=== PATIENT | female | born 1985 | race Caucasian/White ===

== ENCOUNTER → 2019-12-26 | Outpatient (CLI) | payer BC ==
[~2019-12-26] MED LIST: ACET-187 PO; WOMEN'S ONE A DAY PO
[2019-12-26 15:12] LABS: BASOPHILS # (AUTO) 0.03 x10^3/uL (0-0.1); BASOPHILS % (AUTO) 0 % (0-1); EOSINOPHILS # (AUTO) 0.19 x10^3/uL (0-0.4); EOSINOPHILS % (AUTO) 2 % (1-7); LYMPHOCYTES # (AUTO) 3.14 x10^3/uL (1-3.4); LYMPHOCYTES % (AUTO) 33 % (22-44); MD NO; MEAN CORPUSCULAR HEMOGLOBIN 27.8 pg (27.0-34.8); MEAN CORPUSCULAR HGB CONC 32.6 g/dL (32.4-35.8); MEAN CORPUSCULAR VOLUME 85.2 fL (80-100); MEAN PLATELET VOLUME 9.1 fL (7.4-10.4); MONOCYTES # (AUTO) 0.34 x10^3/uL (0.2-0.8); MONOCYTES % (AUTO) 4 % (2-9); NEUTROPHILS # (AUTO) 5.71 x10^3/uL (1.8-6.8); NEUTROPHILS % (AUTO) 61 % (42-75); PLATELET COUNT 285 x10^3/uL (130-400); RED BLOOD COUNT 5.43 x10^6/uL (3.82-5.3); RED CELL DISTRIBUTION WIDTH 13.9 % (9.6-15.2)
[2019-12-26 15:18] LABS: MICROSCOPIC AUTO
[2019-12-26 15:21] LABS: ALANINE AMINOTRANSFERASE 46 U/L (12-78); ALBUMIN 3.5 g/dL (3.4-5.0); ANION GAP 5 mmol/L (5-15); CALCIUM 8.4 mg/dL (8.5-10.1); CHLORIDE 108 mmol/L (98-107)
[2019-12-26 15:25] LABS: ALKALINE PHOSPHATASE 110 U/L (45-117); BILIRUBIN,TOTAL 0.3 mg/dL (0.2-1.0); TOTAL PROTEIN 7.4 g/dL (6.4-8.2)
== END | disposition home or self-care (01) ==
LOC: STAR 14:23
PROVIDERS: ATTEND Obstetrics & Gynecology Gynecology
DX: Z01.818 Encounter for other preprocedural examination (principal); Z11.59 Encounter for screening for other viral diseases; N92.0 Excessive and frequent menstruation with regular cycle; N84.0 Polyp of corpus uteri
CPT/HCPCS: 36415; 80053; 81001; 84703; 85025; 87086; 87635

== ENCOUNTER 2019-12-30 11:43 | Day surgery (SDC) | payer BC ==
[~2019-12-30] VITALS: Ht 165.1 cm; Wt 115.1 kg
[~2019-12-30 11:43] MED LIST changes: +FENTANYL PF 100 MCG/2ML ONE; +LIDOCAINE 1%-EPI 1:100K, 20ML ONE; +MIDAZOLAM 1 MG/ML, 2ML ONE; +ROCURONIUM 10MG/ML,5ML ONE; +SUCCINYLCHOLINE 20 MG/ML, 10ML ONE
[2019-12-30] MEDS ORDERED: LIDOCAINE-MPF 1%, 2ML ONE (12:01)
[2019-12-30 12:03] VITALS: BP 147/83
[2019-12-30] MEDS: LACTATED RINGERS 1,000 ML IV SCH ×2 (12:10→12:15)
[2019-12-30 12:14] LABS: HCG UR SG 1.024 (1.003-1.030)
[2019-12-30] MEDS ORDERED: MIDAZOLAM 1 MG/ML, 2ML ONE (12:25)
[2019-12-30] MEDS ORDERED: CHLORHEXIDINE 15 ML UDC MM ONE (12:30)
[2019-12-30] MEDS ORDERED: DEXAMETHASONE 4 MG/ML, 1ML ONE ×2 (12:47)
[2019-12-30] MEDS ORDERED: ONDANSETRON 2MG/ML, 2ML ONE ×2 (12:51→13:11)
[2019-12-30] MEDS ORDERED: KETOROLAC 30 MG/1 ML ONE (12:51)
[2019-12-30] MEDS ORDERED: FENTANYL PF 100 MCG/2ML ONE (12:55)
[2019-12-30] MEDS ORDERED: PROPOFOL 10 MG/ML, 20ML ONE (12:56)
[2019-12-30] MEDS ORDERED: FENTANYL PF 100 MCG/2ML IV PRN (13:00)
[2019-12-30] MEDS ORDERED: MEPERIDINE/PF 25MG/0.5ML IVPush PRN (13:00)
[2019-12-30] MEDS ORDERED: hydrALAzine 20 MG/ML, 1ML IV PRN (13:00)
[2019-12-30] MEDS ORDERED: PROMETHAZINE 25 MG/ML, 1ML IVPush PRN (13:00)
[2019-12-30] MEDS ORDERED: OXYcodone 5 MG/5 ML ORAL.SOL UDC PO PRN (13:00)
[2019-12-30] MEDS ORDERED: LABETALOL 5MG/ML, 20ML IV PRN (13:00)
[2019-12-30] MEDS ORDERED: HYDROmorphone 1 MG/ML, 1ML INJ IVPush PRN (13:00)
[2019-12-30] MEDS ORDERED: ONDANSETRON 2MG/ML, 2ML IVPush PRN (13:00)
[2019-12-30] MEDS ORDERED: ACETAMINOPHEN 325 MG TABLET PO PRN (13:00)
[2019-12-30] MEDS ORDERED: METOCLOPRAMIDE 5 MG/ML, 2ML ONE (13:11)
== END 2019-12-30 15:26 | disposition home or self-care (01) ==
LOC: OUT 11:43
PROVIDERS: ATTEND Obstetrics & Gynecology Gynecology
DX: N92.0 Excessive and frequent menstruation with regular cycle (principal); N84.0 Polyp of corpus uteri; E66.9 Obesity, unspecified; Z68.42 Body mass index [BMI] 45.0-49.9, adult
CPT/HCPCS: 58558; 81025; 88305; J0330; J1100; J1885; J2250; J2405; J2704; J2765; J3010; J3490; J7120